=== PATIENT | female | born 1980 | race Caucasian/White ===

== ENCOUNTER 2018-06-16 19:54 | Emergency (ER) | payer OTHER ==
[~2018-06-16] VITALS: Ht 162.6 cm; Wt 121.6 kg
[2018-06-16] MEDS ORDERED: FLEXERIL PO (21:15)
[2018-06-16] MEDS ORDERED: MOBIC7.5 MG PO (21:15)
[2018-06-16 21:26] VITALS: BP 136/80
== END 2018-06-16 21:28 | disposition home or self-care (01) ==
LOC: M.ERS 19:54
DX: M62.830 Muscle spasm of back (principal)